=== PATIENT | female | born 1935 | race Caucasian/White ===

== ENCOUNTER 2021-03-21 20:10 | Emergency (ER) | payer MEDICARE ==
[2021-03-21] MEDS ORDERED: HYDROmorphone 0.5 MG/0.5 ML SYRINGE IVP STA ×2 (20:23→22:54)
--- NOTE | 2021-03-21 21:10 | XR ---
EXAMINATION TYPE: XR chest 1V portable DATE OF EXAM: 03/21/2021 COMPARISON: NONE HISTORY: Pain status post fall TECHNIQUE: Single frontal view of the chest is obtained. FINDINGS: There is mild bibasilar atelectasis. No significant infiltrate, pleural effusion, or pneum othorax seen. The cardiac silhouette size is mildly enlarged. The osseous structures are intact. IMPRESSION: No acute cardiopulmonary abnormality.
--- NOTE | 2021-03-21 21:14 | XR ---
RESULT: HISTORY: fall, left hip pain TECHNIQUE: AP view of the pelvis with 2 views of the left hip. COMPARISON: None. FINDINGS: There are displaced fractures of the left superior and inferior pubic rami. Evidence of dislocation. There are mild degenerative disease of the bilateral hips. IMPRESSION: Left pubic rami fractures.
--- NOTE | 2021-03-21 21:15 | XR ---
Result: Clinical History: Pain. Comparison: None available. Technique: 3 views of the right shoulder. Findings: The bone mineralization is appropriate for age. No acute fracture or dislocation is seen. The acromioclavicular and glenohumeral joints are grossly preserved . Impression: No acute osseous abnormality.
--- NOTE | 2021-03-21 21:15 | ED ---
General Adult HPI - General Chief complaint: Trauma Stated complaint: Fall Time Seen by Provider: 03/21/21 20:15 Source: patient, family, EMS Mode of arrival: EMS Limitations: no limitations - History of Present Illness Initial comments: Patient presents the ED by ambulance for evaluation status post fall with her daughter at bedside. Per daughter, the patient accidentally slipped and "rolled down" about 5 steps just prior to coming to the ED this evening. Patient and daughter both deny LOC. Daughter states that the patient did sustain a head inj ury, and patient is reportedly on warfarin, although daughter states that the patient has not taken her warfarin dose today. Patient is currently complaining of having right shoulder pain and left hip pain only. Patient denies any other site of pain. Patient denies headache, focal numbness/weakness/neuro deficit, neck/back pain, chest pain, dyspnea, palpitations, dizziness, abdominal pain, nausea or vomiting, or any other symptoms or complaints. Patient was placed in a c-collar by EMS. - Related Data Allergies Allergy/AdvReac Type Severity Reaction Status Date / Time hydrocodone Allergy Unknown Verified 03/21/21 21:11 metronidazole Allergy Unknown Verified 03/21/21 21:11 simvastatin Allergy Unknown Verified 03/21/21 21:11 terbinafine Allergy Unknown Verified 03/21/21 21:11 tramadol Allergy Unknown Verified 03/21/21 21:11 Review of Systems ROS Statement: Those systems with pertinent positive or pertinent negative responses have been documented in the HPI. ROS Other: All systems not noted in ROS Statement are negative. Past Medical History Additional Past Medical History / Comment(s): Afib, Hypercholestremia, dementia. History of Any Multi-Drug Resistant Organisms: None Reported Past Surgical History: No Surgical Hx Reported Past Psychological History: No Psychological Hx Reported Smoking Status: Never smoker Past Alcohol Use History: None Reported Past Drug Use History: None Reported General Exam Limitations: no limitations General appearance: alert, in no apparent distress Head exam: Present: atraumatic, normocephalic Eye exam: Present: normal appearance, PERRL, EOMI ENT exam: Present: mucous membranes moist, TM's normal bilaterally Neck exam: Present: normal inspection, other (C-collar was clinically cleared myself; trachea is in midline). Absent: tenderness Respiratory exam: Present: normal lung sounds bilaterally. Absent: respiratory distress, wheezes, rales, rhonchi, stridor, chest wall tenderness Cardiovascular Exam: Present: regular rate, normal rhythm, normal heart sounds, other (Normal radial and dorsalis pedis pulses bilaterally) GI/Abdominal exam: Present: soft. Absent: distended, tenderness, guarding Extremities exam: Present: other (Right lateral shoulder tenderness; no tenderness is appreciated over right AC joint or right clavicle; left anterior hip tenderness; pelvis is stable; no lower extremity deformity or shortening is appreciated) Back exam: Present: normal inspection. Absent: tenderness Neurological exam: Present: alert, oriented X3, CN II-XII intact. Absent: motor sensory deficit Psychiatric exam: Present: normal affect, normal mood Skin exam: Present: warm, dry, intact, normal color Course Vital Signs 03/21/21 20:10 Temperature 97.9 F Pulse Rate 66 Respiratory 18 Rate Blood Pressure 161/68 O2 Sat by Pulse 98 Oximetry - Reevaluation(s) Reevaluation #1: 03/21/21 22:36 Case, H&P imaging reports and patient's family's request for the patient to be transferred to [facility] were discussed with Dr. Londono (ED physician at [facility]). He accepts ambulance transfer to their ED. He has no further recommendations at this time. 03/21/21 22:40 Patient denies development of any new pain or symptoms while in the ED. Patient remains alert and breathing comfortably. Patient's family states that they are from the [facility], and they state that the patient is a [facility] patient. They have requested that the patient be transferred to [facility] for admission. Patient has been accepted for transfer to the [facility] ED by Dr. Londoon. Medical Decision Making - Medical Decision Making Patient's imaging studies are all negative other than having left superior and inferior pubic rami fractures. Patient's labs are fairly unremarkable. Patient has been accepted for transfer to the [facility] ED per the patient's family's request. - Lab Data Result diagrams: 03/21/21 20:23 03/21/21 20:23 Lab Results 03/21/21 03/21/21 03/21/21 Range/Units 20:23 20: 20: WBC 7.9 (3.8-10.6) k/uL RBC 3.91 (3.80-5.40) m/uL Hgb 11.9 (11.4-16.0) gm/dL Hct 34.8 (34.0-46.0) % MCV 89.1 (80.0-100.0) fL MCH 30.5 (25.0-35.0) pg MCHC 34.2 (31.0-37.0) g/dL RDW 13.8 (11.5-15.5) % Plt Count 198 (150-450) k/uL MPV 8.0 Neutrophils % 52 % Lymphocytes % 38 % Monocytes % 6 % Eosinophils % 2 % Basophils % 0 % Neutrophils # 4.1 (1.3-7.7) k/uL Lymphocytes # 3.0 (1.0-4.8) k/uL Monocytes # 0.4 (0-1.0) k/uL Eosinophils # 0.2 (0-0.7) k/uL Basophils # 0.0 (0-0.2) k/uL PT 18.7 H (9.0-12.0) sec INR 1.9 H (<1.2) APTT 24.6 (22.0-30.0) sec Sodium 139 (137-145) mmol/L Potassium 3.3 L (3.5-5.1) mmol/L Chloride 106 (98-107) mmol/L Carbon Dioxide 22 (22-30) mmol/L Anion Gap 11 mmol/L BUN 21 H (7-17) mg/dL Creatinine 0.78 (0.52-1.04) mg/dL Est GFR (CKD-EPI)AfAm 82 (>60 ml/min/1.73 sqM) Est GFR (CKD-EPI)NonAf 71 (>60 ml/min/1.73 sqM) Glucose 132 H (74-99) mg/dL Calcium 9.3 (8.4-10.2) mg/dL Total Bilirubin 1.4 H (0.2-1.3) mg/dL AST 39 H (14-36) U/L ALT 26 (4-34) U/L Alkaline Phosphatase 49 (38-126) U/L Total Protein 7.5 (6.3-8.2) g/dL Albumin 4.5 (3.5-5.0) g/dL - Radiology Data Radiology results: report reviewed (Chest x-ray: No acute cardiopulmonary abnormality; right shoulder x-rays: No acute osseous abnormality; CT head and cervical spine are negative; left hip/pelvis x-rays: Left superior and inferior pubic rami fractures) Disposition Clinical Impression: Fall, Head injury, Closed fracture of left inferior pubic ramus, Closed fracture of left superior pubic ramus Disposition: OTHER INSTITUTION NOT DEFINED Condition: Stable Is patient prescribed a controlled substance at d/c from ED?: No Referrals: Nonstaff,Physician [Primary Care Provider] - 1-2 days Time of Disposition: 22:37 - Out of Hospital Transfer - Req. Specs Out of Hospital Transfer - Requested Specifics: Other Emergency Center ([facility])
--- NOTE | 2021-03-21 21:24 | CT ---
EXAMINATION TYPE: CT brain elva pierre con DATE OF EXAM: 03/21/2021 COMPARISON: None available HISTORY: fall CT DLP: 1273 mGycm Automated exposure control for dose reduction was used. TECHNIQUE: CT scan of the head and cervical spine are performed without contrast. FINDINGS: There is no acute intracranial hemorrhage, mass effect, or midline shift identified. Ther e is moderate parenchymal volume loss. White matter is grossly preserved. The ventricles and sulci a re within normal limits in size. The globes are intact and the visualized sinuses are clear. Cervical spine is visualized in its entirety from C1 through upper thoracic levels and without eviden ce of acute fracture or dislocation. Mild cervical spondylosis without significant spondylolisthesis. Prevertebral soft tissue appears within normal limits. The C1-C2 articulation is unremarkable. Sub centimeter left upper lobe calcified granuloma seen. IMPRESSION: 1. There is no acute fracture or dislocation evident in the cervical spine. 2. No acute intracranial hemorrhage, mass effect, or midline shift is seen.
[2021-03-21 21:36] LABS: Basophils % (A) 0 %; Eosinophils # (A) 0.2 k/uL (0-0.7); Eosinophils % (A) 2 %; HCT 34.8 % (34.0-46.0); HGB 11.9 gm/dL (11.4-16.0); Lymphocytes % (A) 38 %; MCH 30.5 pg (25.0-35.0); MCHC 34.2 g/dL (31.0-37.0); MCV 89.1 fL (80.0-100.0); Monocytes # (A) 0.4 k/uL (0-1.0); Monocytes % (A) 6 %; Neutrophils # (A) 4.1 k/uL (1.3-7.7); Neutrophils % (A) 52 %; Platelet Count 198 k/uL (150-450); RBC 3.91 m/uL (3.80-5.40); RDW 13.8 % (11.5-15.5); WBC 7.9 k/uL (3.8-10.6)
[2021-03-21 21:41] LABS: INR 1.9 (<1.2); Partial Thromboplastin Time 24.6 sec (22.0-30.0); Prothrombin Time 18.7 sec (9.0-12.0)
[2021-03-21 21:42] LABS: Albumin 4.5 g/dL (3.5-5.0); Calcium 9.3 mg/dL (8.4-10.2); Potassium 3.3 mmol/L (3.5-5.1); Total Bilirubin 1.4 mg/dL (0.2-1.3); Total Protein 7.5 g/dL (6.3-8.2)
[2021-03-21 23:25] VITALS: BP 138/80; PULSE 81; RESP 16; TEMP 98
== END 2021-03-21 23:20 | disposition other institution (70) ==
LOC: EC 20:10
DX: S32.512A Fracture of superior rim of left pubis, initial encounter for closed fracture (principal); S32.592A Other specified fracture of left pubis, initial encounter for closed fracture; S09.90XA Unspecified injury of head, initial encounter; I48.91 Unspecified atrial fibrillation; F03.90 Unspecified dementia, unspecified severity, without behavioral disturbance, psychotic disturbance, mood disturbance, and anxiety; Z79.01 Long term (current) use of anticoagulants; Z88.1 Allergy status to other antibiotic agents; Z88.5 Allergy status to narcotic agent; Z88.8 Allergy status to other drugs, medicaments and biological substances; W10.9XXA Fall (on) (from) unspecified stairs and steps, initial encounter
CPT/HCPCS: 36415; 80053; 85025; 85610; 85730; 73502; 73030; 71045; 72125; 70450; 99285; 96374; 96376; J1170